=== PATIENT | male | born 1990 | race African-American/Black ===

== ENCOUNTER 2019-10-02 12:15 | Emergency (ER) | payer OTHER ==
[2019-10-02] MEDS ORDERED: ZPAK PO (14:27)
[2019-10-02 14:41] VITALS: BP 142/83
== END 2019-10-02 14:52 | disposition home or self-care (01) | DRG 153 ==
LOC: ED 12:15
DX: J02.9 Acute pharyngitis, unspecified (principal); Z20.828 Contact with and (suspected) exposure to other viral communicable diseases

== ENCOUNTER 2020-01-27 14:48 | Emergency (ER) | payer SELFPAY ==
[~2020-01-27] VITALS: Ht 162.6 cm; Wt 78.6 kg
[~2020-01-27 14:48] MED LIST: ZPAK PO
[2020-01-27 16:24] LABS: HEMATOCRIT 38.8 % (39.0-50.0); IMMATURE GRANULOCYTES 0.3 % (0.0-5.0); MEAN CELL VOLUME 87.6 fL CALC (80.0-100.0); MEAN CORPUSCULAR HGB 29.3 pG CALC (26.0-32.0); MEAN CORPUSCULAR HGB CONC 33.5 g/dL CAL (32.0-36.0); NEUT# 8.8 thou/uL (1.82-7.42); RED BLOOD COUNT 4.43 mill/uL (4.70-6.10); RED CELL DISTRI WIDTH 12.1 % (11.5-15.5)
[2020-01-27 16:37] LABS: ALKALINE PHOSPHATASE 65 u/l (38-126); ANION GAP 11 (6-22 (CALC)); BILIRUBIN, TOTAL 0.8 mg/dL (0.0-1.4); BUN 12 mg/dL (9-20); BUN/CREATININE RATIO 13 (12-20 (CALC)); CARBON DIOXIDE 27 mmol/l (22-30); CHLORIDE 99 mmol/l (95-108); CREATININE 0.9 mg/dL (0.7-1.3); GFR > 60 ML/MIN (>=60 (CALC)); GFR FOR AFR.AMER. > 60 ML/MIN (>=60 (CALC)); POTASSIUM 3.4 mmol/l (3.5-5.1); SGOT/AST 23 u/l (17-59); SODIUM 134 mmol/l (137-146); TOTAL PROTEIN 6.9 g/dL (6.3-8.2)
[2020-01-27 17:31] LABS: URINE BILIRUBIN - DIPSTICK NEGATIVE (NEGATIVE); URINE BLOOD DIPSTICK NEGATIVE (NEGATIVE); URINE COLOR YELLOW; URINE GLUCOSE - DIPSTICK NEGATIVE (NEGATIVE); URINE KETONE TRACE mg/dL (NEGATIVE); URINE LEUK ESTERASE NEGATIVE (NEGATIVE); URINE NITRITE - DIPSTICK NEGATIVE (Negative); URINE PROTEIN - DIPSTICK NEGATIVE (NEG-TRACE); URINE SPECIFIC GRAVITY 1.025; URINE UROBILINOGEN - DIPSTICK 0.2 E.U./dL (0.2)
[2020-01-27] MEDS ORDERED: METRONIDAZOL500 MG PO (18:31)
[2020-01-27] MEDS ORDERED: CIPROFLOXACN500 MG PO (18:31)
[2020-01-27] MEDS ORDERED: ZOFRAN4 MG/TAB PO (18:31)
[2020-01-27] MEDS ORDERED: DICYCLOMINE20 MG PO (18:31)
[2020-01-27] MEDS ORDERED: HYDROCO/APAP1 TA9 PO (18:31)
[2020-01-27 19:20] VITALS: BP 150/77
== END 2020-01-27 19:20 | disposition home or self-care (01) | DRG 392 ==
LOC: ED 14:48
PROVIDERS: Student in an Organized Health Care Education/Training Program
DX: K57.32 Diverticulitis of large intestine without perforation or abscess without bleeding (principal); Z88.1 Allergy status to other antibiotic agents
CPT/HCPCS: Q9967

== ENCOUNTER 2020-09-22 15:35 | Emergency (ER) | payer OTHER ==
[~2020-09-22] VITALS: Ht 162.6 cm; Wt 77.2 kg
[~2020-09-22 15:35] MED LIST changes: +CIPROFLOXACN500 MG PO; +DICYCLOMINE20 MG PO; +HYDROCO/APAP1 TA9 PO; +METRONIDAZOL500 MG PO; +ZOFRAN4 MG/TAB PO
[2020-09-22 16:36] VITALS: BP 149/96
[2020-09-22] MEDS ORDERED: TRAMADOL HYDROC50 M1 PO ×2 (16:40→16:51)
[2020-09-22] MEDS ORDERED: ZOFRAN4 MG/TAB PO ×2 (16:40→16:51)
== END 2020-09-22 16:55 | disposition home or self-care (01) | DRG 935 ==
LOC: ED 15:35
PROC: 2W2FX4Z Dressing of Left Hand using Bandage (ICD-10-PCS; principal; 2020-09-22)
DX: T23.162A Burn of first degree of back of left hand, initial encounter (principal); X10.2XXA Contact with fats and cooking oils, initial encounter; Y93.G3 Activity, cooking and baking

== ENCOUNTER 2021-01-18 21:40 | Emergency (ER) | payer SELFPAY ==
[~2021-01-18] VITALS: Ht 162.6 cm; Wt 72.0 kg
[~2021-01-18 21:40] MED LIST changes: +TRAMADOL HYDROC50 M1 PO
[2021-01-18 22:20] LABS: HEMATOCRIT 43.8 % (39.0-50.0); IMMATURE GRANULOCYTES 0.2 % (0.0-5.0); MEAN CELL VOLUME 88.5 fL CALC (80.0-100.0); MEAN CORPUSCULAR HGB 30.3 pG CALC (26.0-32.0); MEAN CORPUSCULAR HGB CONC 34.2 g/dL CAL (32.0-36.0); NEUT# 3.05 thou/uL (1.82-7.42); RED BLOOD COUNT 4.95 mill/uL (4.70-6.10); RED CELL DISTRI WIDTH 11.9 % (11.5-15.5)
[2021-01-18 22:44] LABS: URINE BILIRUBIN - DIPSTICK NEGATIVE (NEGATIVE); URINE BLOOD DIPSTICK NEGATIVE (NEGATIVE); URINE COLOR YELLOW; URINE GLUCOSE - DIPSTICK NEGATIVE (NEGATIVE); URINE KETONE NEGATIVE (NEGATIVE); URINE LEUK ESTERASE NEGATIVE (NEGATIVE); URINE PH 7.5 (4.5-8.0); URINE PROTEIN - DIPSTICK NEGATIVE (NEG-TRACE); URINE UROBILINOGEN - DIPSTICK 0.2 E.U./dL (0.2)
[2021-01-18 22:45] LABS: ALBUMIN 4.3 g/dL (3.2-5.0); ALKALINE PHOSPHATASE 77 u/l (38-126); AMYLASE 68 u/l (30-110); BILIRUBIN, TOTAL 0.9 mg/dL (0.0-1.4); BUN 10 mg/dL (9-20); BUN/CREATININE RATIO 12 (12-20 (CALC)); CARBON DIOXIDE 30 mmol/l (22-30); CHLORIDE 104 mmol/l (95-108); CREATININE 0.9 mg/dL (0.7-1.3); GFR > 60 ML/MIN (>=60 (CALC)); GFR FOR AFR.AMER. > 60 ML/MIN (>=60 (CALC)); LIPASE 113 u/l (23-300); SGOT/AST 33 u/l (17-59); TOTAL PROTEIN 7.6 g/dL (6.3-8.2)
[2021-01-18 22:45] LABS: URINE NITRITE - DIPSTICK NEGATIVE (Negative)
[2021-01-18 22:47] LABS: ANION GAP 10 (6-22 (CALC)); POTASSIUM 4.3 mmol/l (3.5-5.1); SODIUM 140 mmol/l (137-146)
[2021-01-18 23:59] VITALS: BP 128/72
== END 2021-01-19 | disposition home or self-care (01) | DRG 392 ==
LOC: ED 21:40
PROVIDERS: Family Medicine
DX: K57.30 Diverticulosis of large intestine without perforation or abscess without bleeding (principal)
CPT/HCPCS: Q9967

== ENCOUNTER 2021-04-05 20:25 | Emergency (ER) | payer OTHER ==
[~2021-04-05] VITALS: Ht 162.6 cm; Wt 77.0 kg
[2021-04-05] MEDS ORDERED: ADDERALL10 MG PO (20:50)
[2021-04-05 21:24] VITALS: BP 138/78
== END 2021-04-05 21:00 | disposition home or self-care (01) | DRG 125 ==
LOC: ED 20:25
PROC: 0HQ1XZZ Repair Face Skin, External Approach (ICD-10-PCS; principal; 2021-04-05)
DX: S01.112A Laceration without foreign body of left eyelid and periocular area, initial encounter (principal); W01.198A Fall on same level from slipping, tripping and stumbling with subsequent striking against other object, initial encounter; Y93.E9 Activity, other interior property and clothing maintenance; Y92.002 Bathroom of unspecified non-institutional (private) residence as the place of occurrence of the external cause

== ENCOUNTER 2021-04-27 08:59 | Emergency (ER) | payer OTHER ==
[~2021-04-27] VITALS: Ht 162.6 cm; Wt 75.6 kg
[~2021-04-27 08:59] MED LIST changes: +ADDERALL10 MG PO
[2021-04-27 10:15] LABS: HEMATOCRIT 42.9 % (39.0-50.0); HEMOGLOBIN 14.4 g/dl (14.0-18.0); MEAN CELL VOLUME 89.2 fL CALC (80.0-100.0); MEAN CORPUSCULAR HGB 29.9 pG CALC (26.0-32.0); MEAN CORPUSCULAR HGB CONC 33.6 g/dL CAL (32.0-36.0); NEUT# 2.18 thou/uL (1.82-7.42); RED BLOOD COUNT 4.81 mill/uL (4.70-6.10); RED CELL DISTRI WIDTH 12.5 % (11.5-15.5)
[2021-04-27 10:30] LABS: ALBUMIN 4.4 g/dL (3.2-5.0); ALKALINE PHOSPHATASE 61 u/l (38-126); ANION GAP 12 (6-22 (CALC)); BUN 12 mg/dL (9-20); BUN/CREATININE RATIO 13 (12-20 (CALC)); CARBON DIOXIDE 26 mmol/l (22-30); CHLORIDE 104 mmol/l (95-108); CREATININE 0.9 mg/dL (0.7-1.3); GFR > 60 ML/MIN (>=60 (CALC)); GFR FOR AFR.AMER. > 60 ML/MIN (>=60 (CALC)); LIPASE 51 u/l (23-300); POTASSIUM 3.9 mmol/l (3.5-5.1); SGOT/AST 51 u/l (17-59); SODIUM 137 mmol/l (137-146); TOTAL PROTEIN 7.8 g/dL (6.3-8.2)
[2021-04-27 12:18] LABS: URINE BILIRUBIN - DIPSTICK NEGATIVE (NEGATIVE); URINE BLOOD DIPSTICK NEGATIVE (NEGATIVE); URINE COLOR YELLOW; URINE GLUCOSE - DIPSTICK NEGATIVE (NEGATIVE); URINE KETONE NEGATIVE (NEGATIVE); URINE LEUK ESTERASE NEGATIVE (NEGATIVE); URINE PROTEIN - DIPSTICK NEGATIVE (NEG-TRACE); URINE SPECIFIC GRAVITY <=1.005; URINE UROBILINOGEN - DIPSTICK 0.2 E.U./dL (0.2)
[2021-04-27 12:20] LABS: URINE NITRITE - DIPSTICK NEGATIVE (Negative)
[2021-04-27] MEDS ORDERED: ULTRAM50 MG PO (12:43)
[2021-04-27 12:57] VITALS: BP 130/75
== END 2021-04-27 13:16 | disposition home or self-care (01) | DRG 392 ==
LOC: ED 08:59
DX: R10.32 Left lower quadrant pain (principal); Z20.822 Contact with and (suspected) exposure to COVID-19
CPT/HCPCS: Q9967

== ENCOUNTER 2021-08-13 23:03 | Emergency (ER) | payer OTHER, MEDICAID ==
[~2021-08-13] VITALS: Ht 162.6 cm; Wt 68.2 kg
[~2021-08-13 23:03] MED LIST changes: +ULTRAM50 MG PO
[2021-08-13 23:23] VITALS: BP 131/96
[2021-08-13 23:30] VITALS: BP 133/82
[2021-08-13 23:47] LABS: HEMATOCRIT 42.8 % (39.0-50.0); HEMOGLOBIN 14.9 g/dl (14.0-18.0); MEAN CELL VOLUME 86.6 fL CALC (80.0-100.0); MEAN CORPUSCULAR HGB 30.2 pG CALC (26.0-32.0); MEAN CORPUSCULAR HGB CONC 34.8 g/dL CAL (32.0-36.0); NEUT# 1.37 thou/uL (1.82-7.42); RED BLOOD COUNT 4.94 mill/uL (4.70-6.10)
[2021-08-13 23:52] VITALS: BP 123/78
[2021-08-14] VITALS: BP 135/74
[2021-08-14 00:05] LABS: ALBUMIN 4.6 g/dL (3.2-5.0); ALKALINE PHOSPHATASE 74 u/l (38-126); AMYLASE 80 u/l (30-110); ANION GAP 14 (6-22 (CALC)); BILIRUBIN, TOTAL 0.8 mg/dL (0.0-1.4); BUN 14 mg/dL (9-20); BUN/CREATININE RATIO 15 (12-20 (CALC)); CARBON DIOXIDE 24 mmol/l (22-30); CHLORIDE 105 mmol/l (95-108); GFR > 60 ML/MIN (>=60 (CALC)); GFR FOR AFR.AMER. > 60 ML/MIN (>=60 (CALC)); LIPASE 94 u/l (23-300); POTASSIUM 3.7 mmol/l (3.5-5.1); SGOT/AST 50 u/l (17-59); SODIUM 139 mmol/l (137-146); TOTAL PROTEIN 7.7 g/dL (6.3-8.2)
[2021-08-14 00:47] VITALS: BP 133/87
[2021-08-14 01:00] VITALS: BP 146/78
[2021-08-14] MEDS ORDERED: PROMETHAZINE HY25 M1 PO (02:13)
[2021-08-14 02:20] VITALS: BP 146/78
== END 2021-08-14 02:39 | disposition home or self-care (01) | DRG 392 ==
LOC: ED 23:03
PROVIDERS: Family Medicine
DX: A08.4 Viral intestinal infection, unspecified (principal)
CPT/HCPCS: Q9967

== ENCOUNTER 2021-10-07 22:43 | Emergency (ER) | payer OTHER, MEDICAID ==
[~2021-10-07] VITALS: Ht 162.6 cm; Wt 72.0 kg
[~2021-10-07 22:43] MED LIST changes: +PROMETHAZINE HY25 M1 PO
[2021-10-07 23:08] LABS: HEMOGLOBIN 13.2 g/dl (14.0-18.0); MEAN CORPUSCULAR HGB 30.1 pG CALC (26.0-32.0); MEAN CORPUSCULAR HGB CONC 33.8 g/dL CAL (32.0-36.0); NEUT# 2.46 thou/uL (1.82-7.42); RED BLOOD COUNT 4.38 mill/uL (4.70-6.10); RED CELL DISTRI WIDTH 12.4 % (11.5-15.5)
[2021-10-07 23:20] LABS: ALBUMIN 4.5 g/dL (3.2-5.0); ALKALINE PHOSPHATASE 53 u/l (38-126); ANION GAP 11 (6-22 (CALC)); BILIRUBIN, TOTAL 1.1 mg/dL (0.0-1.4); BUN 11 mg/dL (9-20); BUN/CREATININE RATIO 12 (12-20 (CALC)); CARBON DIOXIDE 25 mmol/l (22-30); CHLORIDE 103 mmol/l (95-108); CPK 415 u/l (52-200); CREATININE 0.9 mg/dL (0.7-1.3); GFR FOR AFR.AMER. > 60 ML/MIN (>=60 (CALC)); GFR OTHER RACES > 60 ML/MIN (>=60 (CALC)); POTASSIUM 2.9 mmol/l (3.5-5.1); SGOT/AST 39 u/l (17-59); SODIUM 136 mmol/l (137-146); TOTAL PROTEIN 7.5 g/dL (6.3-8.2)
[2021-10-07 23:21] VITALS: BP 143/82
[2021-10-07] MEDS ORDERED: K-TAB20 MEQ PO (23:27)
[2021-10-07 23:30] VITALS: BP 140/84
[2021-10-07 23:45] VITALS: BP 135/89
[2021-10-08 00:10] VITALS: BP 137/87
[2021-10-08 01:00] VITALS: BP 136/82
[2021-10-08 01:31] VITALS: BP 146/95
[2021-10-08 01:45] VITALS: BP 135/89
== END 2021-10-08 01:45 | disposition home or self-care (01) | DRG 641 ==
LOC: ED 22:43
PROVIDERS: Family Medicine
DX: E87.6 Hypokalemia (principal)
CPT/HCPCS: J3475

== ENCOUNTER 2022-01-27 14:21 | Emergency (ER) | payer BC, MEDICAID ==
[~2022-01-27] VITALS: Ht 162.6 cm; Wt 80.0 kg
[~2022-01-27 14:21] MED LIST changes: +K-TAB20 MEQ PO
[2022-01-27 16:01] LABS: HEMATOCRIT 39.1 % (39.0-50.0); HEMOGLOBIN 13.4 g/dl (14.0-18.0); IMMATURE GRANULOCYTES 0.2 % (0.0-5.0); MEAN CELL VOLUME 88.1 fL CALC (80.0-100.0); MEAN CORPUSCULAR HGB 30.2 pG CALC (26.0-32.0); MEAN CORPUSCULAR HGB CONC 34.3 g/dL CAL (32.0-36.0); NEUT# 2.69 thou/uL (1.82-7.42); RED BLOOD COUNT 4.44 mill/uL (4.70-6.10); RED CELL DISTRI WIDTH 12.2 % (11.5-15.5)
[2022-01-27 16:11] LABS: ALBUMIN 4.2 g/dL (3.2-5.0); ALKALINE PHOSPHATASE 56 u/l (38-126); BUN 16 mg/dL (9-20); BUN/CREATININE RATIO 17 (12-20 (CALC)); CARBON DIOXIDE 23 mmol/l (22-30); CHLORIDE 105 mmol/l (95-108); GFR FOR AFR.AMER. > 60 ML/MIN (>=60 (CALC)); GFR OTHER RACES > 60 ML/MIN (>=60 (CALC)); LIPASE 67 u/l (23-300); SGOT/AST 42 u/l (17-59); SODIUM 138 mmol/l (137-146); TOTAL PROTEIN 6.9 g/dL (6.3-8.2)
[2022-01-27 16:17] LABS: ANION GAP 14 (6-22 (CALC)); BILIRUBIN, TOTAL 0.6 mg/dL (0.0-1.4)
[2022-01-27 17:44] LABS: URINE BILIRUBIN - DIPSTICK NEGATIVE (NEGATIVE); URINE BLOOD DIPSTICK NEGATIVE (NEGATIVE); URINE COLOR YELLOW; URINE GLUCOSE - DIPSTICK NEGATIVE (NEGATIVE); URINE KETONE NEGATIVE (NEGATIVE); URINE LEUK ESTERASE NEGATIVE (NEGATIVE); URINE PROTEIN - DIPSTICK NEGATIVE (NEG-TRACE); URINE SPECIFIC GRAVITY 1.025; URINE UROBILINOGEN - DIPSTICK 0.2 E.U./dL (0.2)
[2022-01-27 17:48] LABS: URINE NITRITE - DIPSTICK NEGATIVE (Negative)
[2022-01-27] MEDS ORDERED: TRAMADOL HYDROC50 M1 PO (18:10)
[2022-01-27] MEDS ORDERED: METRONIDAZOLE500 MG PO (18:11)
[2022-01-27] MEDS ORDERED: CIPROFLOXACN500 MG PO (18:11)
[2022-01-27] MEDS ORDERED: ZOFRAN4 MG/TAB PO (18:11)
[2022-01-27 18:52] VITALS: BP 129/100
== END 2022-01-27 18:45 | disposition home or self-care (01) | DRG 392 ==
LOC: ED 14:21
PROVIDERS: Family Medicine
DX: K52.9 Noninfective gastroenteritis and colitis, unspecified (principal)
CPT/HCPCS: Q9967

== ENCOUNTER 2022-02-17 11:31 | Emergency (ER) | payer BC, MEDICAID ==
[~2022-02-17] VITALS: Ht 162.6 cm; Wt 75.0 kg
[~2022-02-17 11:31] MED LIST changes: +METRONIDAZOLE500 MG PO
[2022-02-17 11:47] VITALS: BP 143/96
[2022-02-17 12:09] VITALS: BP 136/89
[2022-02-17 12:10] VITALS: BP 136/89
[2022-02-17 12:16] LABS: HEMOGLOBIN 14.6 g/dl (14.0-18.0); IMMATURE GRANULOCYTES 0.2 % (0.0-5.0); MEAN CELL VOLUME 86.2 fL CALC (80.0-100.0); MEAN CORPUSCULAR HGB CONC 34.8 g/dL CAL (32.0-36.0); NEUT# 2.95 thou/uL (1.82-7.42); RED BLOOD COUNT 4.87 mill/uL (4.70-6.10); RED CELL DISTRI WIDTH 12.1 % (11.5-15.5)
[2022-02-17 12:34] LABS: ALBUMIN 4.4 g/dL (3.2-5.0); ALKALINE PHOSPHATASE 54 u/l (38-126); ANION GAP 13 (6-22 (CALC)); BUN 16 mg/dL (9-20); BUN/CREATININE RATIO 17 (12-20 (CALC)); CARBON DIOXIDE 26 mmol/l (22-30); CHLORIDE 104 mmol/l (95-108); GFR FOR AFR.AMER. > 60 ML/MIN (>=60 (CALC)); GFR OTHER RACES > 60 ML/MIN (>=60 (CALC)); LIPASE 48 u/l (23-300); POTASSIUM 4.3 mmol/l (3.5-5.1); SGOT/AST 43 u/l (17-59); SODIUM 138 mmol/l (137-146); TOTAL PROTEIN 7.1 g/dL (6.3-8.2)
[2022-02-17 12:35] LABS: BILIRUBIN, TOTAL 1.1 mg/dL (0.0-1.4)
[2022-02-17 13:37] LABS: URINE BILIRUBIN - DIPSTICK NEGATIVE (NEGATIVE); URINE BLOOD DIPSTICK NEGATIVE (NEGATIVE); URINE GLUCOSE - DIPSTICK NEGATIVE (NEGATIVE); URINE KETONE NEGATIVE (NEGATIVE); URINE LEUK ESTERASE NEGATIVE (NEGATIVE); URINE PROTEIN - DIPSTICK TRACE mg/dL (NEG-TRACE); URINE SPECIFIC GRAVITY >=1.030; URINE UROBILINOGEN - DIPSTICK 0.2 E.U./dL (0.2)
[2022-02-17 13:39] LABS: URINE COLOR DK. YELLOW; URINE NITRITE - DIPSTICK POSITIVE (Negative)
[2022-02-17 13:53] LABS: URINE MUCUS RARE hpf (NONE-FEW); URINE TRANSITIONAL EPI. CELLS FEW hpf
[2022-02-17] MEDS ORDERED: PEPCID20 MG PO (14:22)
[2022-02-17] MEDS ORDERED: PROTONIX40 M2 PO (14:22)
== END 2022-02-17 15:05 | disposition home or self-care (01) | DRG 392 ==
LOC: ED 11:31
PROVIDERS: Family Medicine
DX: K52.9 Noninfective gastroenteritis and colitis, unspecified (principal); E78.5 Hyperlipidemia, unspecified
CPT/HCPCS: Q9967

== ENCOUNTER 2022-05-06 00:54 | Emergency (ER) | payer OTHER, MEDICAID ==
[~2022-05-06] VITALS: Ht 162.6 cm; Wt 76.0 kg
[~2022-05-06 00:54] MED LIST changes: +PEPCID20 MG PO; +PROTONIX40 M2 PO
[2022-05-06] MEDS ORDERED: TUSSI-PRE2 PO (02:38)
[2022-05-06] MEDS ORDERED: MOTRIN800 MG PO (02:38)
[2022-05-06 02:52] VITALS: BP 120/79
== END 2022-05-06 02:52 | disposition home or self-care (01) | DRG 195 ==
LOC: ED 00:54
DX: J10.1 Influenza due to other identified influenza virus with other respiratory manifestations (principal); M79.10 Myalgia, unspecified site

== ENCOUNTER 2022-07-01 13:07 | Emergency (ER) | payer OTHER, MEDICAID ==
[2022-07-01] VITALS (12 sets, daily range): BP systolic 103–155; BP diastolic 83–98
[~2022-07-01] VITALS: Ht 162.6 cm; Wt 72.7 kg
[~2022-07-01 13:07] MED LIST changes: +MOTRIN800 MG PO; +TUSSI-PRE2 PO
[2022-07-01 14:27] LABS: BASO% 0.9 % (0-3); EOS% 4.4 % (0-8); HEMATOCRIT 43.5 % (39.0-50.0); HEMOGLOBIN 14.9 g/dl (14.0-18.0); IMMATURE GRANULOCYTES 0.2 % (0.0-5.0); LYMPH% 36.6 % (15-41); MEAN CELL VOLUME 85.1 fL CALC (80.0-100.0); MEAN CORPUSCULAR HGB 29.2 pG CALC (26.0-32.0); MEAN CORPUSCULAR HGB CONC 34.3 g/dL CAL (32.0-36.0); MONO% 8.4 % (2-13); NEUT# 3.3 thou/uL (1.82-7.42); NEUT% 49.5 % (42-76); RED BLOOD COUNT 5.11 mill/uL (4.70-6.10); RED CELL DISTRI WIDTH 11.9 % (11.5-15.5)
[2022-07-01 14:41] LABS: ALBUMIN 4.6 g/dL (3.2-5.0); ALKALINE PHOSPHATASE 69 u/l (38-126); ANION GAP 15 (6-22 (CALC)); BILIRUBIN, TOTAL 0.7 mg/dL (0.2-1.3); BUN 12 mg/dL (9-20); BUN/CREATININE RATIO 13 (12-20 (CALC)); CARBON DIOXIDE 24 mmol/l (22-30); CHLORIDE 104 mmol/l (95-108); CREATININE 0.9 mg/dL (0.7-1.3); GFR FOR AFR.AMER. > 60 ML/MIN (>=60 (CALC)); GFR OTHER RACES > 60 ML/MIN (>=60 (CALC)); POTASSIUM 4.3 mmol/l (3.5-5.1); SGOT/AST 74 u/l (17-59); SODIUM 139 mmol/l (137-146); TOTAL PROTEIN 7.3 g/dL (6.3-8.2)
[2022-07-01 15:21] LABS: URINE BILIRUBIN - DIPSTICK NEGATIVE (NEGATIVE); URINE BLOOD DIPSTICK NEGATIVE (NEGATIVE); URINE COLOR YELLOW; URINE GLUCOSE - DIPSTICK NEGATIVE (NEGATIVE); URINE KETONE NEGATIVE (NEGATIVE); URINE LEUK ESTERASE NEGATIVE (NEGATIVE); URINE PH 8.5 (4.5-8.0); URINE PROTEIN - DIPSTICK NEGATIVE (NEG-TRACE); URINE UROBILINOGEN - DIPSTICK 0.2 E.U./dL (0.2)
[2022-07-01 15:24] LABS: URINE NITRITE - DIPSTICK NEGATIVE (Negative)
[2022-07-01] MEDS ORDERED: METRONIDAZOLE500 MG PO (18:12)
[2022-07-01] MEDS ORDERED: LEVAQUIN750 M1 PO (18:12)
[2022-07-01] MEDS ORDERED: TRAMADOL HCL50 MG PO (18:12)
== END 2022-07-01 20:20 | disposition home or self-care (01) | DRG 392 ==
LOC: ED 13:07
PROVIDERS: Emergency Medicine
DX: K52.9 Noninfective gastroenteritis and colitis, unspecified (principal)
CPT/HCPCS: J1956; Q9967

== ENCOUNTER 2022-09-14 17:10 | Emergency (ER) | payer OTHER ==
[~2022-09-14] VITALS: Ht 162.6 cm; Wt 74.8 kg
[~2022-09-14 17:10] MED LIST changes: +LEVAQUIN750 M1 PO; +TRAMADOL HCL50 MG PO
[2022-09-14 17:54] VITALS: BP 128/84
[2022-09-14 17:55] LABS: BASO% 0.9 % (0-3); EOS% 1.7 % (0-8); HEMATOCRIT 44.9 % (39.0-50.0); HEMOGLOBIN 15.1 g/dl (14.0-18.0); IMMATURE GRANULOCYTES 0.1 % (0.0-5.0); LYMPH% 33.7 % (15-41); MEAN CORPUSCULAR HGB 28.9 pG CALC (26.0-32.0); MEAN CORPUSCULAR HGB CONC 33.6 g/dL CAL (32.0-36.0); MONO% 8.4 % (2-13); NEUT# 3.89 thou/uL (1.82-7.42); NEUT% 55.2 % (42-76); RED BLOOD COUNT 5.22 mill/uL (4.70-6.10); RED CELL DISTRI WIDTH 12.3 % (11.5-15.5)
[2022-09-14 17:57] LABS: URINE BILIRUBIN - DIPSTICK NEGATIVE (NEGATIVE); URINE BLOOD DIPSTICK NEGATIVE (NEGATIVE); URINE COLOR YELLOW; URINE GLUCOSE - DIPSTICK NEGATIVE (NEGATIVE); URINE KETONE NEGATIVE (NEGATIVE); URINE LEUK ESTERASE NEGATIVE (NEGATIVE); URINE PROTEIN - DIPSTICK NEGATIVE (NEG-TRACE); URINE SPECIFIC GRAVITY >=1.030; URINE UROBILINOGEN - DIPSTICK 0.2 E.U./dL (0.2)
[2022-09-14 17:58] LABS: URINE NITRITE - DIPSTICK NEGATIVE (Negative)
[2022-09-14] MEDS ORDERED: ADDERALL10 MG PO (17:59)
[2022-09-14 18:00] VITALS: BP 133/89
[2022-09-14 18:05] LABS: ALBUMIN 4.4 g/dL (3.2-5.0); ALKALINE PHOSPHATASE 63 u/l (38-126); ANION GAP 11 (6-22 (CALC)); BILIRUBIN, TOTAL 0.9 mg/dL (0.2-1.3); BUN 12 mg/dL (9-20); BUN/CREATININE RATIO 12 (12-20 (CALC)); CARBON DIOXIDE 25 mmol/l (22-30); CHLORIDE 105 mmol/l (95-108); GFR FOR AFR.AMER. > 60 ML/MIN (>=60 (CALC)); GFR OTHER RACES > 60 ML/MIN (>=60 (CALC)); SGOT/AST 92 u/l (17-59); SODIUM 138 mmol/l (137-146); TOTAL PROTEIN 7.5 g/dL (6.3-8.2)
[2022-09-14 18:07] LABS: POTASSIUM 3.4 mmol/l (3.5-5.1)
[2022-09-14 18:15] VITALS: BP 140/79
[2022-09-14 18:31] VITALS: BP 143/77
[2022-09-14 18:45] VITALS: BP 153/88
[2022-09-14] MEDS ORDERED: DICYCLOMINE10 MG PO (19:58)
[2022-09-14] MEDS ORDERED: METRONIDAZOLE500 MG PO (19:58)
[2022-09-14 20:41] VITALS: BP 146/76
== END 2022-09-14 20:44 | disposition home or self-care (01) | DRG 392 ==
LOC: ED 17:10
PROVIDERS: Family Medicine
DX: K52.9 Noninfective gastroenteritis and colitis, unspecified (principal); E78.5 Hyperlipidemia, unspecified

== ENCOUNTER 2023-04-13 15:52 | Emergency (ER) | payer OTHER ==
[2023-04-13] VITALS (7 sets, daily range): BP systolic 136–156; BP diastolic 87–108
[~2023-04-13] VITALS: Ht 162.6 cm; Wt 73.0 kg
[~2023-04-13 15:52] MED LIST changes: +DICYCLOMINE10 MG PO; +ONDANSETRON4 MG PO
[2023-04-13 16:41] LABS: EOS% 4.4 % (0-8); HEMATOCRIT 42.2 % (39.0-50.0); HEMOGLOBIN 14.5 g/dl (14.0-18.0); IMMATURE GRANULOCYTES 0.3 % (0.0-5.0); LYMPH% 39.6 % (15-41); MEAN CELL VOLUME 90.4 fL CALC (80.0-100.0); MEAN CORPUSCULAR HGB CONC 34.4 g/dL CAL (32.0-36.0); MONO% 7.4 % (2-13); NEUT# 3.37 thou/uL (1.82-7.42); NEUT% 47.3 % (42-76); RED BLOOD COUNT 4.67 mill/uL (4.70-6.10); RED CELL DISTRI WIDTH 11.7 % (11.5-15.5)
[2023-04-13 17:02] LABS: ALBUMIN 4.5 g/dL (3.2-5.0); ALKALINE PHOSPHATASE 84 u/l (38-126); ANION GAP 16 (6-22 (CALC)); BUN 11 mg/dL (9-20); BUN/CREATININE RATIO 11 (12-20 (CALC)); CARBON DIOXIDE 24 mmol/l (22-30); CHLORIDE 106 mmol/l (95-108); GFR FOR AFR.AMER. > 60 ML/MIN (>=60 (CALC)); GFR OTHER RACES > 60 ML/MIN (>=60 (CALC)); LIPASE 163 u/l (23-300); POTASSIUM 3.4 mmol/l (3.5-5.1); SODIUM 143 mmol/l (137-146); TOTAL PROTEIN 7.7 g/dL (6.3-8.2)
[2023-04-13 17:16] LABS: BILIRUBIN, TOTAL 0.7 mg/dL (0.2-1.3); SGOT/AST 95 u/l (17-59)
[2023-04-13 17:20] LABS: URINE BILIRUBIN - DIPSTICK Negative (NEGATIVE); URINE BLOOD DIPSTICK Negative (NEGATIVE); URINE GLUCOSE - DIPSTICK Negative (NEGATIVE); URINE KETONE Negative (NEGATIVE); URINE LEUK ESTERASE Negative (NEGATIVE); URINE NITRITE - DIPSTICK Negative (Negative); URINE PROTEIN - DIPSTICK Negative (NEG-TRACE); URINE UROBILINOGEN - DIPSTICK 0.2 E.U./dL (0.2)
[2023-04-13 17:24] LABS: URINE COLOR Yellow
[2023-04-13] MEDS ORDERED: METRONIDAZOLE500 MG PO (18:44)
[2023-04-13] MEDS ORDERED: CIPROFLOXACN500 MG PO (18:44)
[2023-04-13] MEDS ORDERED: PERCOCET 5/325M1 TAB PO (18:45)
== END 2023-04-13 19:05 | disposition home or self-care (01) | DRG 392 ==
LOC: ED 15:52
PROVIDERS: Emergency Medicine
DX: K52.9 Noninfective gastroenteritis and colitis, unspecified (principal); Z87.19 Personal history of other diseases of the digestive system
CPT/HCPCS: Q9967

== ENCOUNTER 2023-05-28 03:51 | Emergency (ER) | payer OTHER ==
[~2023-05-28] VITALS: Ht 162.6 cm; Wt 74.8 kg
[~2023-05-28 03:51] MED LIST changes: +PERCOCET 5/325M1 TAB PO
[2023-05-28 04:18] VITALS: BP 141/90
[2023-05-28] MEDS ORDERED: ACETAMINOPHEN 500 MG TAB PO ONE (05:10)
[2023-05-28] MEDS ORDERED: KETOROLAC TROMETHAMINE 30 MG/ML SDV IM ONE (05:10)
[2023-05-28] MEDS ORDERED: NAPROXEN500 MG PO (05:16)
== END 2023-05-28 05:55 | disposition home or self-care (01) | DRG 866 ==
LOC: ED 03:51
DX: B34.9 Viral infection, unspecified (principal); Z20.822 Contact with and (suspected) exposure to COVID-19

== ENCOUNTER 2023-11-06 08:13 | Emergency (ER) | payer OTHER ==
[~2023-11-06] VITALS: Ht 162.6 cm; Wt 68.0 kg
[~2023-11-06 08:13] MED LIST changes: +KETOROLAC10 MG PO; +LORTAB 5/3255 MG PO; +NAPROXEN500 MG PO; +PREDNISONE50 MG PO; +ZYRTEC10 M5 PO
[2023-11-06 08:37] VITALS: BP 139/103
[2023-11-06 08:45] VITALS: BP 144/104
[2023-11-06] MEDS ORDERED: ONDANSETRON HCl 4 MG/2 ML SDV IV ONE (08:45)
[2023-11-06] MEDS ORDERED: MORPHINE SULFATE 4 MG/ML VIAL IV ONE (08:45)
[2023-11-06] MEDS ORDERED: SODIUM CHLORIDE 0.9% 1,000 ML IV ONE (08:45)
[2023-11-06 08:56] LABS: BASO% 1.4 % (0-3); HEMATOCRIT 40.4 % (39.0-50.0); HEMOGLOBIN 14.3 g/dl (14.0-18.0); LYMPH% 51.6 % (15-41); MEAN CELL VOLUME 91.2 fL CALC (80.0-100.0); MEAN CORPUSCULAR HGB 32.3 pG CALC (26.0-32.0); MEAN CORPUSCULAR HGB CONC 35.4 g/dL CAL (32.0-36.0); MONO% 11.7 % (2-13); NEUT# 1.02 thou/uL (1.82-7.42); NEUT% 29.3 % (42-76); RED BLOOD COUNT 4.43 mill/uL (4.70-6.10); RED CELL DISTRI WIDTH 12.9 % (11.5-15.5)
[2023-11-06 09:00] VITALS: BP 148/101
[2023-11-06 09:12] LABS: ALBUMIN 4.6 g/dL (3.2-5.0); BILIRUBIN, TOTAL 1.4 mg/dL (0.2-1.3); CREATININE 0.9 mg/dL (0.7-1.3); POTASSIUM 3.7 mmol/l (3.5-5.1); TOTAL PROTEIN 7.3 g/dL (6.3-8.2)
[2023-11-06 09:15] VITALS: BP 152/100
[2023-11-06 09:30] VITALS: BP 139/95
[2023-11-06 09:53] VITALS: BP 139/95
[2023-11-06 10:12] LABS: URINE BILIRUBIN - DIPSTICK Negative (NEGATIVE); URINE BLOOD DIPSTICK Negative (NEGATIVE); URINE GLUCOSE - DIPSTICK Negative (NEGATIVE); URINE KETONE Negative (NEGATIVE); URINE LEUK ESTERASE Negative (NEGATIVE); URINE NITRITE - DIPSTICK Negative (Negative); URINE PROTEIN - DIPSTICK Negative (NEG-TRACE)
[2023-11-06 10:17] LABS: URINE COLOR Yellow
== END 2023-11-06 10:01 | disposition left against medical advice (07) | DRG 392 ==
LOC: ED 08:13
PROVIDERS: Family Medicine
DX: R10.32 Left lower quadrant pain (principal); Z53.29 Procedure and treatment not carried out because of patient's decision for other reasons

== ENCOUNTER 2023-11-12 17:12 | Emergency (ER) | payer OTHER ==
[~2023-11-12] VITALS: Ht 162.6 cm; Wt 70.3 kg
[2023-11-12 17:27] VITALS: BP 147/97
[2023-11-12 17:30] VITALS: BP 130/91
[2023-11-12] MEDS ORDERED: ONDANSETRON HCl 4 MG/2 ML SDV IV ONE (17:30)
[2023-11-12] MEDS ORDERED: SODIUM CHLORIDE 0.9% 1,000 ML IV ONE ×2 (17:30→19:10)
[2023-11-12 17:44] LABS: BASO% 0.6 % (0-3); EOS% 1.8 % (0-8); HEMATOCRIT 37.6 % (39.0-50.0); HEMOGLOBIN 13.1 g/dl (14.0-18.0); IMMATURE GRANULOCYTES 0.2 % (0.0-5.0); LYMPH% 33.4 % (15-41); MEAN CELL VOLUME 90.4 fL CALC (80.0-100.0); MEAN CORPUSCULAR HGB 31.5 pG CALC (26.0-32.0); MEAN CORPUSCULAR HGB CONC 34.8 g/dL CAL (32.0-36.0); MONO% 8.5 % (2-13); NEUT# 3.68 thou/uL (1.82-7.42); NEUT% 55.5 % (42-76); RED BLOOD COUNT 4.16 mill/uL (4.70-6.10); RED CELL DISTRI WIDTH 12.8 % (11.5-15.5)
[2023-11-12 17:55] LABS: ALBUMIN 4.6 g/dL (3.2-5.0); BILIRUBIN, TOTAL 1.5 mg/dL (0.2-1.3); CREATININE 0.9 mg/dL (0.7-1.3); POTASSIUM 3.2 mmol/l (3.5-5.1)
[2023-11-12 18:00] VITALS: BP 137/88
[2023-11-12] MEDS ORDERED: POTASSIUM CHLORIDE 20 MEQ/TAB PO ONE (19:10)
[2023-11-12 19:46] LABS: URINE BILIRUBIN - DIPSTICK Negative (NEGATIVE); URINE BLOOD DIPSTICK Negative (NEGATIVE); URINE GLUCOSE - DIPSTICK Negative (NEGATIVE); URINE KETONE Negative (NEGATIVE); URINE LEUK ESTERASE Negative (NEGATIVE); URINE NITRITE - DIPSTICK Negative (Negative); URINE PH 5.5 (4.5-8.0); URINE PROTEIN - DIPSTICK 30 mg/dL (NEG-TRACE); URINE SPECIFIC GRAVITY >=1.030; URINE UROBILINOGEN - DIPSTICK 0.2 E.U./dL (0.2)
[2023-11-12 19:47] LABS: URINE COLOR Yellow
[2023-11-12 20:05] LABS: URINE MUCUS FEW hpf (NONE-FEW); URINE RBC 0-2 RBC/hpf (0-5); URINE WBC 0-2 WBC/hpf (0-5)
[2023-11-12 21:25] VITALS: BP 137/88
== END 2023-11-12 21:28 | disposition home or self-care (01) | DRG 866 ==
LOC: ED 17:12
PROVIDERS: Family Medicine
DX: B34.9 Viral infection, unspecified (principal); E78.5 Hyperlipidemia, unspecified; Z87.19 Personal history of other diseases of the digestive system
CPT/HCPCS: Q9967

== ENCOUNTER 2024-03-08 21:12 | Emergency (ER) | payer BC ==
[~2024-03-08] VITALS: Ht 162.6 cm; Wt 68.0 kg
[~2024-03-08 21:12] MED LIST changes: +COLCHICINE0.6 M2 PO; +MELOXICAM7.5 MG PO
[2024-03-08 23:11] VITALS: BP 143/89
== END 2024-03-08 23:32 | disposition home or self-care (01) | DRG 556 ==
LOC: ED 21:12
DX: M79.89 Other specified soft tissue disorders (principal)

== ENCOUNTER 2024-03-10 08:41 | Emergency (ER) | payer BC ==
[~2024-03-10] VITALS: Ht 162.6 cm; Wt 66.2 kg
[2024-03-10 08:52] VITALS: BP 136/90
[2024-03-10] MEDS ORDERED: CIPROFLOXACIN HCL 500 MG/TAB PO ONE (09:20)
[2024-03-10] MEDS ORDERED: metroNIDAZOLE 500 MG/TAB PO ONE (09:20)
[2024-03-10 09:22] VITALS: BP 139/94
[2024-03-10 09:26] VITALS: BP 139/94
[2024-03-10 09:30] VITALS: BP 144/82
[2024-03-10] MEDS ORDERED: IBUPROFEN 200 MG/TAB PO ONE (09:35)
[2024-03-10] MEDS ORDERED: ACETAMINOPHEN 500 MG TAB PO ONE (09:35)
[2024-03-10] MEDS ORDERED: LIBRIUM25 MG PO (20:53)
== END 2024-03-10 09:40 | disposition home or self-care (01) | DRG 392 ==
LOC: ED 08:41
DX: K57.32 Diverticulitis of large intestine without perforation or abscess without bleeding (principal); F17.200 Nicotine dependence, unspecified, uncomplicated; Z87.19 Personal history of other diseases of the digestive system
CPT/HCPCS: J2060; J2470

== ENCOUNTER 2024-03-10 18:01 | Emergency (ER) | payer BC ==
[~2024-03-10] VITALS: Ht 162.6 cm; Wt 68.0 kg
[2024-03-10] VITALS (10 sets, daily range): BP systolic 134–143; BP diastolic 73–93
[2024-03-10] MEDS ORDERED: SODIUM CHLORIDE 0.9% 1,000 ML IV ONE (18:50)
[2024-03-10] MEDS ORDERED: LORazepam 2 MG/ML IV ONE (18:55)
[2024-03-10] MEDS ORDERED: Pantoprazole Sodium 40 MG VIAL (Protonix) IV ONE (18:55)
[2024-03-10 19:59] LABS: BASO% 0.8 % (0-3); HEMATOCRIT 39.6 % (39.0-50.0); HEMOGLOBIN 13.8 g/dl (14.0-18.0); IMMATURE GRANULOCYTES 0.1 % (0.0-5.0); LYMPH% 33.2 % (15-41); MEAN CELL VOLUME 89.8 fL CALC (80.0-100.0); MEAN CORPUSCULAR HGB 31.3 pG CALC (26.0-32.0); MEAN CORPUSCULAR HGB CONC 34.8 g/dL CAL (32.0-36.0); MONO% 7.3 % (2-13); NEUT# 4.19 thou/uL (1.82-7.42); NEUT% 57.6 % (42-76); RED BLOOD COUNT 4.41 mill/uL (4.70-6.10); RED CELL DISTRI WIDTH 12.3 % (11.5-15.5)
[2024-03-10 20:12] LABS: ALBUMIN 4.5 g/dL (3.2-5.0); ALKALINE PHOSPHATASE 57 u/l (38-126); ANION GAP 14 (6-22 (CALC)); BILIRUBIN, TOTAL 1.2 mg/dL (0.2-1.3); BUN 11 mg/dL (9-20); BUN/CREATININE RATIO 10 (12-20 (CALC)); CARBON DIOXIDE 27 mmol/l (22-30); CHLORIDE 101 mmol/l (95-108); ESTIMATED GFR 103 ML/MIN (>=90 (CALC)); LIPASE 79 u/l (23-300); POTASSIUM 3.1 mmol/l (3.5-5.1); SGOT/AST 59 u/l (17-59); SODIUM 138 mmol/l (137-146); TOTAL PROTEIN 7.3 g/dL (6.3-8.2)
[2024-03-10] MEDS ORDERED: chlordiazePOXIDE HCL 25 MG CAP PO ONE (20:45)
[2024-03-10] MEDS ORDERED: POTASSIUM CHLORIDE 20 MEQ/TAB PO ONE (20:45)
[2024-03-10] MEDS ORDERED: LIBRIUM25 MG PO (20:53)
[2024-03-10] MEDS ORDERED: ONDANSETRON 4 MG/TAB ODT SL ONE (21:10)
[2024-03-10] MEDS ORDERED: ONDANSETRON 4 MG/TAB ODT ONE (23:32)
== END 2024-03-10 23:54 | disposition home or self-care (01) | DRG 880 ==
LOC: ED 18:01
PROVIDERS: Nurse Practitioner
DX: F41.9 Anxiety disorder, unspecified (principal); K52.9 Noninfective gastroenteritis and colitis, unspecified; K57.32 Diverticulitis of large intestine without perforation or abscess without bleeding; E78.5 Hyperlipidemia, unspecified; F17.290 Nicotine dependence, other tobacco product, uncomplicated; T36.8X6A Underdosing of other systemic antibiotics, initial encounter; T37.3X6A Underdosing of other antiprotozoal drugs, initial encounter; Z91.138 Patient's unintentional underdosing of medication regimen for other reason; Z63.4 Disappearance and death of family member
CPT/HCPCS: J2060; J2470

== ENCOUNTER 2024-03-23 01:23 | Emergency (ER) | payer BC ==
[~2024-03-23] VITALS: Ht 162.6 cm; Wt 70.0 kg
[~2024-03-23 01:23] MED LIST changes: +LIBRIUM25 MG PO
[2024-03-23] MEDS ORDERED: ACETAMINOPHEN 500 MG TAB PO ONE (01:45)
[2024-03-23] MEDS ORDERED: IBUPROFEN 800 MG/TAB PO ONE (01:45)
[2024-03-23 02:30] VITALS: BP 109/64
[2024-03-23 02:45] VITALS: BP 108/55
[2024-03-23 03:01] VITALS: BP 104/56
[2024-03-23 03:16] VITALS: BP 94/58
== END 2024-03-23 03:09 | disposition home or self-care (01) | DRG 605 ==
LOC: ED 01:23
DX: S60.221A Contusion of right hand, initial encounter (principal); E78.5 Hyperlipidemia, unspecified; W22.09XA Striking against other stationary object, initial encounter; Z72.0 Tobacco use

== ENCOUNTER 2024-04-02 11:47 | Emergency (ER) | payer BC ==
[2024-04-02] VITALS (8 sets, daily range): BP systolic 131–145; BP diastolic 87–100
[~2024-04-02] VITALS: Ht 162.6 cm; Wt 63.5 kg
[2024-04-02] MEDS ORDERED: KETOROLAC TROMETHAMINE 15 MG/ML SDV IV STA (11:55)
[2024-04-02] MEDS ORDERED: ONDANSETRON HCl 4 MG/2 ML SDV IV ONE (12:00)
[2024-04-02 12:25] LABS: BASO% 0.8 % (0-3); EOS% 2.6 % (0-8); HEMATOCRIT 41.5 % (39.0-50.0); HEMOGLOBIN 14.6 g/dl (14.0-18.0); IMMATURE GRANULOCYTES 0.3 % (0.0-5.0); LYMPH% 29.2 % (15-41); MEAN CELL VOLUME 89.6 fL CALC (80.0-100.0); MEAN CORPUSCULAR HGB 31.5 pG CALC (26.0-32.0); MEAN CORPUSCULAR HGB CONC 35.2 g/dL CAL (32.0-36.0); NEUT# 2.2 thou/uL (1.82-7.42); NEUT% 56.1 % (42-76); RED BLOOD COUNT 4.63 mill/uL (4.70-6.10)
[2024-04-02 12:30] LABS: POTASSIUM 3.4 mmol/l (3.5-5.1)
[2024-04-02 12:39] LABS: BILIRUBIN, TOTAL 2.8 mg/dL (0.2-1.3)
[2024-04-02] MEDS ORDERED: DEXAMETHASON4 MG PO (13:39)
[2024-04-02] MEDS ORDERED: ZOFRAN4 MG/TAB PO (13:39)
[2024-04-02] MEDS ORDERED: TRAMADOL HYDROC50 M1 PO (13:39)
[2024-04-02] MEDS ORDERED: HYDROmorphone HCL 2 MG/AMP IV ONE (13:45)
== END 2024-04-02 14:13 | disposition home or self-care (01) | DRG 392 ==
LOC: ED 11:47
PROVIDERS: Nurse Practitioner Family
DX: K52.9 Noninfective gastroenteritis and colitis, unspecified (principal); F17.200 Nicotine dependence, unspecified, uncomplicated
CPT/HCPCS: J1171; J1885; J2405; Q9967

== ENCOUNTER 2024-04-30 09:49 | Emergency (ER) | payer BC ==
[~2024-04-30] VITALS: Ht 162.6 cm; Wt 72.0 kg
[~2024-04-30 09:49] MED LIST changes: +DEXAMETHASON4 MG PO
[2024-04-30 09:57] VITALS: BP 144/80
[2024-04-30 10:44] VITALS: BP 141/79
== END 2024-04-30 11:05 | disposition home or self-care (01) | DRG 563 ==
LOC: ED 09:49
DX: S86.811A Strain of other muscle(s) and tendon(s) at lower leg level, right leg, initial encounter (principal); X50.3XXA Overexertion from repetitive movements, initial encounter; Y93.02 Activity, running; Y99.8 Other external cause status; Z72.0 Tobacco use

== ENCOUNTER 2024-05-18 07:34 | Emergency (ER) | payer BC ==
[~2024-05-18] VITALS: Ht 162.6 cm; Wt 74.0 kg
[2024-05-18 08:00] LABS: URINE BLOOD DIPSTICK Negative (NEGATIVE); URINE GLUCOSE - DIPSTICK Negative (NEGATIVE); URINE KETONE Trace mg/dL (NEGATIVE); URINE LEUK ESTERASE Negative (NEGATIVE); URINE NITRITE - DIPSTICK Negative (Negative); URINE PROTEIN - DIPSTICK 30 mg/dL (NEG-TRACE); URINE SPECIFIC GRAVITY 1.025; URINE UROBILINOGEN - DIPSTICK 0.2 E.U./dL (0.2)
[2024-05-18 08:02] LABS: BASO% 0.8 % (0-3); EOS% 4.2 % (0-8); HEMATOCRIT 45.8 % (39.0-50.0); HEMOGLOBIN 15.4 g/dl (14.0-18.0); IMMATURE GRANULOCYTES 0.2 % (0.0-5.0); MEAN CELL VOLUME 92.9 fL CALC (80.0-100.0); MEAN CORPUSCULAR HGB 31.2 pG CALC (26.0-32.0); MEAN CORPUSCULAR HGB CONC 33.6 g/dL CAL (32.0-36.0); MONO% 10.6 % (2-13); NEUT# 2.08 thou/uL (1.82-7.42); NEUT% 40.2 % (42-76); RED BLOOD COUNT 4.93 mill/uL (4.70-6.10)
[2024-05-18 08:04] LABS: URINE COLOR Yellow
[2024-05-18 08:10] LABS: URINE EPITHELIAL CELLS RARE EPI/hpf (0-FEW)
[2024-05-18] MEDS ORDERED: SODIUM CHLORIDE 0.9% 1,000 ML IV ONE (08:10)
[2024-05-18 08:23] LABS: ALBUMIN 4.8 g/dL (3.2-5.0); BILIRUBIN, TOTAL 1.7 mg/dL (0.2-1.3); CREATININE 0.9 mg/dL (0.7-1.3); POTASSIUM 3.6 mmol/l (3.5-5.1); TOTAL PROTEIN 7.5 g/dL (6.3-8.2)
[2024-05-18] MEDS ORDERED: KETOROLAC TROMETHAMINE 30 MG/ML SDV IV ONE (09:40)
[2024-05-18 10:55] VITALS: BP 132/95
== END 2024-05-18 11:06 | disposition home or self-care (01) | DRG 392 ==
LOC: ED 07:34
PROVIDERS: Family Medicine
DX: K52.9 Noninfective gastroenteritis and colitis, unspecified (principal)
CPT/HCPCS: Q9967